=== PATIENT | female | born 1940 | race Hispanic/Latino ===

== ENCOUNTER → 2024-03-09 | Outpatient (CLI) | payer OTHER | END | disposition home or self-care (01) | LOC: RAH 08:22 | PROVIDERS: ATTEND Internal Medicine Gastroenterology | DX: R10.11 Right upper quadrant pain (principal); E27.8 Other specified disorders of adrenal gland; R93.2 Abnormal findings on diagnostic imaging of liver and biliary tract; K80.20 Calculus of gallbladder without cholecystitis without obstruction | CPT/HCPCS: 74181; S8037 ==